=== PATIENT | female | born 1980 | race Caucasian/White ===

== ENCOUNTER 2023-03-29 10:44 | Emergency (ER) | payer OTHER ==
[~2023-03-29] VITALS: Ht 160 cm; Wt 74.4 kg
[~2023-03-29 10:44] MED LIST: FLOVENT 110MCG7.9 GM IH; PROVENTIL3 ML/2.5 M IH; ZITHROMAX500 MG PO
== END 2023-03-29 15:11 | disposition home or self-care (01) ==
LOC: ER 10:44
DX: R06.02 Shortness of breath (principal); Z20.822 Contact with and (suspected) exposure to COVID-19

== ENCOUNTER → 2023-04-01 10:47 | Outpatient (CLI) | payer OTHER | END | disposition home or self-care (01) | LOC: LAB 10:47 | PROVIDERS: ATTEND Family Medicine | DX: E03.9 Hypothyroidism, unspecified (principal); I10 Essential (primary) hypertension; R73.03 Prediabetes; R07.89 Other chest pain; N39.0 Urinary tract infection, site not specified; N91.0 Primary amenorrhea; J18.9 Pneumonia, unspecified organism ==

== ENCOUNTER 2023-04-05 09:04 | Inpatient (IN) | payer OTHER ==
[~2023-04-05] VITALS: Ht 160 cm; Wt 74.4 kg
[2023-04-08] MEDS ORDERED: BUDESONIDE1 MG/2 ML (08:17)
[2023-04-08] MEDS ORDERED: CETIRIZINE HCL10 MG (08:18)
== END 2023-04-09 15:58 | disposition home or self-care (01) | DRG 419 ==
LOC: ER 09:04 → SURG 16:11 → SEC-K 16:11 → SURG 17:59
PROVIDERS: Surgery; ADMIT Specialist; ATTEND Specialist
PROC: BW40ZZZ Ultrasonography of Abdomen (ICD-10-PCS; 2023-04-05)
PROC: 0FT44ZZ Resection of Gallbladder, Percutaneous Endoscopic Approach (ICD-10-PCS; principal; 2023-04-07 12:00)
DX: K80.20 Calculus of gallbladder without cholecystitis without obstruction (principal)

== ENCOUNTER 2023-05-05 10:00 | Emergency (ER) | payer OTHER ==
[~2023-05-05] VITALS: Ht 160 cm; Wt 72.6 kg
[~2023-05-05 10:00] MED LIST changes: +BUDESONIDE1 MG/2 ML; +CETIRIZINE HCL10 MG
[2023-05-05] MEDS ORDERED: INTESTINEX680 M1 PO (16:33)
[2023-05-05] MEDS ORDERED: DICY20TA PO (16:33)
[2023-05-05] MEDS ORDERED: PEPCID20 MG PO (16:33)
== END 2023-05-05 17:21 | disposition home or self-care (01) ==
LOC: ER 10:00
DX: K52.9 Noninfective gastroenteritis and colitis, unspecified (principal); Z88.0 Allergy status to penicillin; Z98.890 Other specified postprocedural states; K29.70 Gastritis, unspecified, without bleeding; Z20.822 Contact with and (suspected) exposure to COVID-19

== ENCOUNTER 2023-05-07 09:09 | Outpatient (CLI) | payer OTHER ==
[~2023-05-07 09:09] MED LIST changes: +DICY20TA PO; +INTESTINEX680 M1 PO; +PEPCID20 MG PO
== END 2023-05-07 09:13 | disposition home or self-care (01) ==
LOC: LAB 09:09
DX: R19.7 Diarrhea, unspecified (principal); D64.9 Anemia, unspecified; E78.2 Mixed hyperlipidemia; E03.9 Hypothyroidism, unspecified; N39.0 Urinary tract infection, site not specified; Z12.11 Encounter for screening for malignant neoplasm of colon

== ENCOUNTER 2023-05-07 10:45 | Outpatient (CLI) | payer OTHER | END 2023-05-07 11:00 | disposition home or self-care (01) | LOC: MAMO-SONO 10:45 | DX: Z12.31 Encounter for screening mammogram for malignant neoplasm of breast (principal); N64.4 Mastodynia ==

== ENCOUNTER → 2023-05-08 10:04 | Outpatient (CLI) | payer OTHER | END | disposition home or self-care (01) | LOC: LAB 10:04 | DX: Z12.11 Encounter for screening for malignant neoplasm of colon (principal) ==

== ENCOUNTER 2023-06-03 11:07 | Outpatient (CLI) | payer OTHER | END 2023-06-03 11:12 | disposition home or self-care (01) | LOC: LAB 11:07 | DX: R00.2 Palpitations (principal); I11.9 Hypertensive heart disease without heart failure; E11.9 Type 2 diabetes mellitus without complications; E78.2 Mixed hyperlipidemia; Z88.0 Allergy status to penicillin; R63.4 Abnormal weight loss; N39.0 Urinary tract infection, site not specified; R10.9 Unspecified abdominal pain; Z12.11 Encounter for screening for malignant neoplasm of colon; R63.5 Abnormal weight gain; E03.9 Hypothyroidism, unspecified; E78.5 Hyperlipidemia, unspecified; R80.9 Proteinuria, unspecified; Z79.01 Long term (current) use of anticoagulants; Z79.4 Long term (current) use of insulin ==

== ENCOUNTER 2023-06-04 09:03 | Outpatient (CLI) | payer OTHER | END 2023-06-04 09:07 | disposition home or self-care (01) | LOC: TOM 09:03 | DX: R63.4 Abnormal weight loss (principal); K52.9 Noninfective gastroenteritis and colitis, unspecified ==

== ENCOUNTER 2023-06-09 08:07 | Outpatient (CLI) | payer OTHER | END 2023-06-09 08:13 | disposition home or self-care (01) | LOC: SONOGRAMA 08:07 | DX: E04.2 Nontoxic multinodular goiter (principal) ==

== ENCOUNTER 2023-06-19 08:52 | Outpatient (CLI) | payer OTHER | END 2023-06-19 09:16 | disposition home or self-care (01) | LOC: LAB 08:52 | PROVIDERS: ATTEND Obstetrics & Gynecology | DX: D64.9 Anemia, unspecified (principal); E03.8 Other specified hypothyroidism; N95.1 Menopausal and female climacteric states; I10 Essential (primary) hypertension; N30.00 Acute cystitis without hematuria; E83.51 Hypocalcemia; A64 Unspecified sexually transmitted disease; N39.0 Urinary tract infection, site not specified; R97.0 Elevated carcinoembryonic antigen [CEA]; R79.89 Other specified abnormal findings of blood chemistry; E55.9 Vitamin D deficiency, unspecified; E08.9 Diabetes mellitus due to underlying condition without complications; E22.1 Hyperprolactinemia; E78.5 Hyperlipidemia, unspecified; Z12.11 Encounter for screening for malignant neoplasm of colon; Z12.73 Encounter for screening for malignant neoplasm of ovary; E03.9 Hypothyroidism, unspecified; R19.4 Change in bowel habit; K59.1 Functional diarrhea; A09 Infectious gastroenteritis and colitis, unspecified ==

== ENCOUNTER 2023-06-22 14:10 | Outpatient (CLI) | payer OTHER | END 2023-06-22 14:12 | disposition home or self-care (01) | LOC: SONOGRAMA 14:10 | PROVIDERS: ATTEND Obstetrics & Gynecology | DX: R10.2 Pelvic and perineal pain (principal); N93.8 Other specified abnormal uterine and vaginal bleeding ==

== ENCOUNTER 2023-06-22 14:22 | Outpatient (CLI) | payer OTHER | END 2023-06-22 23:00 | disposition home or self-care (01) | LOC: LAB 14:22 | PROVIDERS: ATTEND Obstetrics & Gynecology | DX: E03.9 Hypothyroidism, unspecified (principal); R19.4 Change in bowel habit; K59.1 Functional diarrhea; A09 Infectious gastroenteritis and colitis, unspecified; D64.9 Anemia, unspecified; E03.8 Other specified hypothyroidism; N95.1 Menopausal and female climacteric states; I10 Essential (primary) hypertension; N30.00 Acute cystitis without hematuria; E83.51 Hypocalcemia; N39.0 Urinary tract infection, site not specified; R97.0 Elevated carcinoembryonic antigen [CEA]; R79.89 Other specified abnormal findings of blood chemistry; E55.9 Vitamin D deficiency, unspecified; E08.9 Diabetes mellitus due to underlying condition without complications; E22.1 Hyperprolactinemia; E78.5 Hyperlipidemia, unspecified; Z12.11 Encounter for screening for malignant neoplasm of colon; Z12.73 Encounter for screening for malignant neoplasm of ovary ==

== ENCOUNTER 2023-07-07 08:44 | Outpatient (CLI) | payer OTHER | END 2023-07-07 08:53 | disposition home or self-care (01) | LOC: RX STUDY 08:44 | PROVIDERS: ATTEND Otolaryngology | DX: R13.19 Other dysphagia (principal) ==

== ENCOUNTER 2023-07-13 10:46 | Outpatient (CLI) | payer OTHER | END 2023-07-13 10:50 | disposition home or self-care (01) | LOC: NUCLEAR 10:46 | PROVIDERS: ATTEND Internal Medicine | DX: I11.9 Hypertensive heart disease without heart failure (principal); R07.9 Chest pain, unspecified; R06.9 Unspecified abnormalities of breathing ==

== ENCOUNTER 2024-10-26 10:13 | Emergency (ER) | payer OTHER ==
[~2024-10-26] VITALS: Ht 160 cm; Wt 77.1 kg
[2024-10-26] MEDS ORDERED: cloNIDine HCL 0.2 MG TABLET PO ONE (10:45)
[2024-10-26] MEDS ORDERED: CLONIDINE HCL 0.1 MG TABLET PO ONE (10:57)
== END 2024-10-26 13:40 | disposition home or self-care (01) ==
LOC: ER 10:15
DX: I10 Essential (primary) hypertension (principal); Z88.0 Allergy status to penicillin

== ENCOUNTER 2024-10-26 17:36 | Emergency (ER) | payer OTHER ==
[~2024-10-26] VITALS: Ht 162.6 cm; Wt 72.6 kg
[2024-10-26 18:33] LABS: HEMATOCRIT 40.3 % (36.0-45.00); MEAN CELL VOLUME 83.6 fL (80.00-100.00); MEAN CORPUSCULAR HEMOGLOBIN 27.1 pg (27.00-32.0); MEAN CORPUSCULAR HGB CONC 32.4 g/dl (32.0-36.0); PLATELET COUNT 389 K/uL (150-450); RED BLOOD COUNT 4.81 M/uL (4.00-6.00); RED CELL DISTRIBUTION WIDTH 14.1 % (11.5-14.5)
[2024-10-26 19:10] LABS: ALBUMIN 3.9 gm/dL (3.4-5.0); BILIRUBIN TOTAL 0.24 mg/dL (0.3-1.2); CALCIUM 9.5 mg/dL (8.5-10.1); CREATININE SERUM 0.8 mg/dL (0.55-1.02); GFR 77.92; GLOBULINA 4.6 G/DL (2.4-3.5); POTASSIUM 3.67 mEq/L (3.5-5.1); TOTAL PROTEIN 8.5 gm/dL (6.4-8.2)
== END 2024-10-26 21:19 | disposition home or self-care (01) ==
LOC: ER 17:36
PROVIDERS: General Practice
DX: R55 Syncope and collapse (principal); Z20.822 Contact with and (suspected) exposure to COVID-19; I10 Essential (primary) hypertension; Z88.0 Allergy status to penicillin

== ENCOUNTER 2024-11-11 07:57 | Outpatient (CLI) | payer OTHER ==
[2024-11-11 09:03] LABS: PH,URINE 5.5 (5.0-8.0); URINE APPEARANCE Clear; URINE BILIRRUBIN Negative (NEGATIVE); URINE BLOOD Negative; URINE COLOR Yellow; URINE GLUCOSE Negative (NEGATIVE); URINE KETONE Negative (NEGATIVE); URINE LEUKOCYTE Negative; URINE NITRATE Negative; URINE PROTEIN Negative (NEGATIVE); URINE UROBILINOGEN 0.2 E.U./dl
[2024-11-11 09:08] LABS: URINE EPITHELIAL CELLS 3.6 uL (0.0-38.8)
[2024-11-11 09:29] LABS: URINE RBC 1.6 uL (0.0-20.8); URINE WBC 1.4 uL (0.0-23.2)
[2024-11-11 09:38] LABS: HEMATOCRIT 38.7 % (36.0-45.00); HEMOGLOBIN 12.6 g/dL (12.0-15.00); MEAN CELL VOLUME 83.9 fL (80.00-100.00); MEAN CORPUSCULAR HEMOGLOBIN 27.5 pg (27.00-32.0); MEAN CORPUSCULAR HGB CONC 32.7 g/dl (32.0-36.0); PLATELET COUNT 287 K/uL (150-450); RED BLOOD COUNT 4.61 M/uL (4.00-6.00); RED CELL DISTRIBUTION WIDTH 14.1 % (11.5-14.5)
[2024-11-11 10:28] LABS: ALBUMIN 3.9 gm/dL (3.4-5.0); BILIRUBIN TOTAL 0.37 mg/dL (0.3-1.2); CALCIUM 9.4 mg/dL (8.5-10.1); CHOL HDL RATIO 4.4 (0-5.0); CREATININE SERUM 0.52 mg/dL (0.55-1.02); GFR 128.1; GLOBULINA 3.7 G/DL (2.4-3.5); POTASSIUM 4.38 mEq/L (3.5-5.1); TOTAL PROTEIN 7.6 gm/dL (6.4-8.2); TSH 1.05 uIU/mL (0.358-3.74)
== END 2024-11-11 08:01 | disposition home or self-care (01) ==
LOC: LAB 07:57
DX: D64.9 Anemia, unspecified (principal); B34.9 Viral infection, unspecified; N39.0 Urinary tract infection, site not specified; E11.9 Type 2 diabetes mellitus without complications; E78.5 Hyperlipidemia, unspecified; E03.8 Other specified hypothyroidism; Z12.11 Encounter for screening for malignant neoplasm of colon; R19.5 Other fecal abnormalities; N40.0 Benign prostatic hyperplasia without lower urinary tract symptoms; E55.9 Vitamin D deficiency, unspecified

== ENCOUNTER 2025-01-17 08:17 | Outpatient (CLI) | payer OTHER | END 2025-01-17 08:23 | disposition home or self-care (01) | LOC: MAMO-SONO 08:17 | DX: N60.19 Diffuse cystic mastopathy of unspecified breast (principal); Z12.31 Encounter for screening mammogram for malignant neoplasm of breast ==